=== PATIENT | female | born 1980 | race Two or more races ===

== ENCOUNTER → 2017-11-24 | Outpatient (CLI) | payer BC, OTHER ==
[~2017-11-24] MED LIST: FERR-46 PO
[2017-11-24 16:20] LABS: BASOPHILS # (AUTO) 0.04 x10^3/uL (0-0.1); BASOPHILS % (AUTO) 1 % (0-1); EOSINOPHILS # (AUTO) 0.07 x10^3/uL (0-0.4); EOSINOPHILS % (AUTO) 1 % (1-7); LYMPHOCYTES # (AUTO) 1.95 x10^3/uL (1-3.4); LYMPHOCYTES % (AUTO) 31 % (22-44); MD NO; MEAN CORPUSCULAR HEMOGLOBIN 30.6 pg (27.0-34.8); MEAN CORPUSCULAR HGB CONC 33.9 g/dL (32.4-35.8); MEAN CORPUSCULAR VOLUME 90.3 fL (80-100); MEAN PLATELET VOLUME 9.4 fL (7.4-10.4); MONOCYTES # (AUTO) 0.35 x10^3/uL (0.2-0.8); MONOCYTES % (AUTO) 6 % (2-9); NEUTROPHILS # (AUTO) 3.92 x10^3/uL (1.8-6.8); NEUTROPHILS % (AUTO) 62 % (42-75); PLATELET COUNT 296 x10^3/uL (130-400); RED BLOOD COUNT 4.31 x10^6/uL (3.82-5.3); RED CELL DISTRIBUTION WIDTH 13.7 % (9.6-15.2)
[2017-11-24 16:34] LABS: ALANINE AMINOTRANSFERASE 30 U/L (12-78); ALBUMIN 3.6 g/dL (3.4-5.0); ANION GAP 6 mmol/L (5-15); CALCIUM 8.1 mg/dL (8.5-10.1); CHLORIDE 107 mmol/L (98-107); CREATININE 0.63 mg/dL (0.55-1.02)
[2017-11-24 16:38] LABS: ALKALINE PHOSPHATASE 75 U/L (45-117); BILIRUBIN,TOTAL 0.3 mg/dL (0.2-1.0)
== END | disposition home or self-care (01) ==
LOC: STAR 15:26
PROVIDERS: ATTEND Obstetrics & Gynecology
DX: Z01.818 Encounter for other preprocedural examination (principal); D25.9 Leiomyoma of uterus, unspecified
CPT/HCPCS: 36415; 80053; 84703; 85025; 93005

== ENCOUNTER 2018-10-10 09:19 | Emergency (ER) | payer OTHER ==
[~2018-10-10] VITALS: Ht 152.4 cm; Wt 73.3 kg
[~2018-10-10 09:19] MED LIST changes: +DOCU-131 PO; +IBUP-1222 PO; +OXYC-302 PO
[2018-10-10 09:24] VITALS: BP 132/50
== END 2018-10-10 11:02 | disposition home or self-care (01) ==
LOC: ED 10:50
DX: L24.5 Irritant contact dermatitis due to other chemical products (principal)
CPT/HCPCS: 99281